=== PATIENT | female | born 1995 | race Caucasian/White ===

== ENCOUNTER 2021-05-27 08:35 | Outpatient (CLI) | payer OTHER, SELFPAY ==
[2021-05-27 09:23] LABS: Progesterone 30.27 ng/mL
== END 2021-05-27 08:36 | disposition home or self-care (01) ==
LOC: LAB 08:40
PROVIDERS: Visit Provider Obstetrics & Gynecology Reproductive Endocrinology
DX: N91.2 Amenorrhea, unspecified (principal)
CPT/HCPCS: 36415; 84144; 84702